=== PATIENT | female | born 1955 | race Hispanic/Latino ===

== ENCOUNTER 2018-09-05 06:03 | Observation (INO) | payer MEDICAID ==
[2018-09-01 14:45] VITALS: BP 133/64
[2018-09-01 15:17] LABS: BASOPHILS % (AUTO) 0.6 % (0.0-5.0); EOSINOPHILS % (AUTO) 0.9 % (0.0-8.0); HEMATOCRIT 35.5 % (42-54); LYMPHOCYTES % (AUTO) 16.1 % (21.0-51.0); MEAN CORPUSCULAR HEMOGLOBIN 29.1 pg (27.0-33.0); MEAN CORPUSCULAR HGB CONC 33.4 g/dL (32.0-36.0); MEAN CORPUSCULAR VOLUME 87.4 fL (79-99); MONOCYTES % (AUTO) 7.1 % (3.0-13.0); NEUTROPHILS % (AUTO) 75.3 % (40.0-77.0); PLATELET COUNT (AUTO) 234 K/uL (130-400); RED BLOOD CELL COUNT(AUTO) 4.07 MIL/uL (4.50-6.20); RED CELL DISTRIBUTION WIDTH 18.5 % (11.0-15.5); WHITE BLOOD COUNT (AUTO) 11.9 K/uL (4.8-10.8)
[2018-09-01 15:31] LABS: CREATININE 1.1 mg/dL (0.5-1.5); POTASSIUM 4.7 mmol/L (3.5-5.1)
[2018-09-01 15:33] LABS: INR 0.95 (0.85-1.15); PARTIAL THROMBOPLASTIN TIME 28.2 SEC (26.3-35.5)
--- NOTE | 2018-09-04 11:00 | NUR ---
ABNORMAL LABS REPORTED TO ADRIAN TUCKER WBC 11.9, H/H 11.9/35.5. NO FURTHER ORDERS GIVEN, MAY PROCEED WITH PLANNED PROCEDURE.
[2018-09-05] VITALS (22 sets, daily range): BP systolic 78–134; BP diastolic 42–91
[~2018-09-05] VITALS: Ht 144.8 cm; Wt 138.8 kg
[~2018-09-05 06:03] MED LIST: AEC81 PO; ALBUHFA IH; ATOR10TA69 PO; BUPR200T34 PO; CARV12.511 PO; DIGO250T84 PO; ESCI10TA54 PO; ESOM40CA PO; FURO40TA5 PO; LISI2.5T2 PO; LORA10TA7 PO; RIVA20TA PO; SPIR50TA5 PO; VITAD400 PO
[2018-09-05] MEDS ORDERED: SODIUM CHLORIDE 0.9% 1000ML 1,000 ML IV ONE (07:42)
[2018-09-05] MEDS ORDERED: CEFAZOLIN SODIUM 1 GM VIAL ONE ×3 (09:59→10:41)
[2018-09-05] MEDS ORDERED: LIDOCAINE HCL 1% MDV 50ML VIAL ONE (09:59)
[2018-09-05] MEDS ORDERED: BUPIVACAINE/PF 0.25% 30ML VIAL IJ ONE (09:59)
[2018-09-05] MEDS ORDERED: FENTANYL CITRATE PF 50 MCG/1 ML 2ML VIAL ONE (10:23)
[2018-09-05] MEDS ORDERED: MIDAZOLAM HCL 1 MG/ML 2ML VIAL ONE (10:23)
[2018-09-05] MEDS ORDERED: ONDANSETRON HCL 4 MG/2 ML VIAL ONE (10:23)
[2018-09-05] MEDS ORDERED: PROPOFOL 10 MG/ML 20ML VIAL IV ONE (10:23)
[2018-09-05] MEDS ORDERED: ROCURONIUM BROMIDE 10MG/1ML 5ML VL ONE (10:26)
[2018-09-05] MEDS ORDERED: EPHEDRINE SULFATE 50 MG/ML AMPULE ONE (10:44)
[2018-09-05] MEDS ORDERED: GLYCOPYRROLATE 0.2 MG/ML 5 ML VIAL ONE (10:52)
[2018-09-05] MEDS ORDERED: NEOSTIGMINE 5MG/5ML SYR IV ONE (11:44)
[2018-09-05] MEDS ORDERED: OCTYL 2-CYANOACRYLATE 1 EACH TP ONE (12:03)
[2018-09-05] MEDS ORDERED: PANTOPRAZOLE SODIUM 40 MG TABLET.DR PO PRN (12:15)
[2018-09-05] MEDS ORDERED: ACETAMINOPHEN-CODEINE 300/30MG TAB PO PRN (12:15)
[2018-09-05] MEDS ORDERED: ALBUTEROL SULFATE 0.083% 2.5 MG/3 ML INH IH PRN (12:15)
[2018-09-05] MEDS: METOPROLOL TARTRATE 50 MG TAB PO SCH ×2 (12:15→23:23)
[2018-09-05] MEDS ORDERED: ONDANSETRON HCL 4 MG/2 ML VIAL IV PRN (12:15)
[2018-09-05] MEDS: ACETAMINOPHEN-CODEINE 300/30MG TAB PO PRN ×2 (17:24→21:25)
[2018-09-05] MEDS: CEFAZOLIN SODIUM 1 GM VIAL IVP SCH (18:33)
--- NOTE | 2018-09-05 20:50 | NUR ---
NOTIFIED DR. ALMONTE ABOUT DECREASED BLOOD PRESSURE. INITIALLY 70'S/40'S. REPOSITIONED. 90'S/40'S. NO DISTRESS NOTED. ASYMPTOMATIC. DR. ALMONTE STATED 250ML NS BOLUS AND MONITOR DURING THE NIGHT. NO NEW ORDERS. PT AWARE.
[2018-09-05] MEDS: FUROSEMIDE 40 MG TABLET PO SCH (21:24)
[2018-09-06] MEDS ORDERED: ACETAMINOPHEN 325 MG TAB PO PRN ×2 (00:15)
[2018-09-06] MEDS ORDERED: NITROGLYCERIN 0.4 MG SL TAB SL PRN (00:15)
[2018-09-06] MEDS: CEFAZOLIN SODIUM 1 GM VIAL IVP SCH (03:30)
[2018-09-06 03:58] VITALS: BP 147/70
[2018-09-06 04:44] LABS: BASOPHILS % (AUTO) 0.6 % (0.0-5.0); HEMATOCRIT 33.4 % (36-48); LYMPHOCYTES % (AUTO) 18.7 % (21.0-51.0); MEAN CORPUSCULAR HEMOGLOBIN 28.4 pg (27.0-33.0); MEAN CORPUSCULAR HGB CONC 32.6 g/dL (32.0-36.0); MEAN CORPUSCULAR VOLUME 87.1 fL (79-99); NEUTROPHILS % (AUTO) 70.7 % (40.0-77.0); NUCLEATED RED BLOOD CELLS 0.1 % (0.0-0.19); PLATELET COUNT (AUTO) 207 K/uL (130-400); RED BLOOD CELL COUNT(AUTO) 3.84 MIL/uL (4.00-5.50); RED CELL DISTRIBUTION WIDTH 18.6 % (11.0-15.5); WHITE BLOOD COUNT (AUTO) 8.1 K/uL (4.8-10.8)
[2018-09-06 05:01] LABS: MAGNESIUM 1.9 mg/dL (1.80-2.40); POTASSIUM 4.3 mmol/L (3.5-5.1)
[2018-09-06 07:41] VITALS: BP 128/58
--- NOTE | 2018-09-06 07:50 | NUR ---
ASSESSMENT ENCOUNTERED PT SITTING ON SIDE OF BED, A&OX3, CALM COOPERATIVE AND DOES NOT APPEAR TO BE IN ANY DISTRESS NOR ANY NEURO DEFICITS PRESENT. PT DENIES PAIN, SOB, NAUSEA. LEFT SHOULDER DRESSING DRY, INTACT, AND SECURED WITH ARM SLING. PT IS AMBULATORY, GAIT SLOW BUT STEADY WITH STAND BY ASSIST. CALL LIGHT WITHIN REACH, FAMILY AT BEDSIDE.
[2018-09-06] MEDS ORDERED: BUPROPION HCL 300 MG PO SCH (09:00)
[2018-09-06] MEDS ORDERED: CITALOPRAM 20 MG TABLET PO SCH (09:00)
[2018-09-06] MEDS ORDERED: SPIRONOLACTONE 25 MG TAB PO SCH (09:00)
[2018-09-06] MEDS ORDERED: LORATADINE 10 MG TABLET PO SCH (09:00)
[2018-09-06] MEDS ORDERED: LISINOPRIL 2.5 MG TABLET PO SCH (09:00)
[2018-09-06] MEDS ORDERED: ASPIRIN 81 MG EC TAB PO SCH (09:00)
[2018-09-06] MEDS ORDERED: CHOLECALCIFEROL 500 UNIT PO SCH (09:00)
[2018-09-06] MEDS ORDERED: ATORVASTATIN CALCIUM 10 MG TABLET PO SCH (09:00)
[2018-09-06] MEDS: METOPROLOL TARTRATE 50 MG TAB PO SCH (09:19)
[2018-09-06] MEDS: FUROSEMIDE 40 MG TABLET PO SCH (09:24)
[2018-09-06] MEDS: ACETAMINOPHEN-CODEINE 300/30MG TAB PO PRN (09:30)
[2018-09-06] MEDS ORDERED: DOXY100T2 PO (11:19)
[2018-09-06] MEDS ORDERED: METO50TA9 PO (11:19)
[2018-09-06 11:50] VITALS: BP 105/56
--- NOTE | 2018-09-06 13:00 | NUR ---
DISCHARGE INSTRUCTIONS GIVEN, PIV REMOVED AND INTACT, DISCHARGED HOME TO FAMILY VEHICLE VIA WHEELCHAIR.
[2018-09-06] MEDS ORDERED: DIGOXIN 250 MCG TABLET PO SCH (16:00)
== END 2018-09-06 14:04 | disposition home or self-care (01) ==
LOC: DAH 06:03 → 2DH 06:04 → EDSEX 14:00
PROVIDERS: ADMIT Internal Medicine; ATTEND Internal Medicine
DX: I49.5 Sick sinus syndrome (principal); I48.2 Chronic atrial fibrillation; I11.9 Hypertensive heart disease without heart failure; I42.9 Cardiomyopathy, unspecified; G47.33 Obstructive sleep apnea (adult) (pediatric); E11.9 Type 2 diabetes mellitus without complications; F32.9 Major depressive disorder, single episode, unspecified; E66.01 Morbid (severe) obesity due to excess calories; Z91.19 Patient's noncompliance with other medical treatment and regimen; Z95.0 Presence of cardiac pacemaker; Z68.44 Body mass index [BMI] 60.0-69.9, adult
CPT/HCPCS: 33208; 36415 ×2; 71046; 80048 ×2; 83735; 85025 ×2; 85610; 85730; 93005 ×2; 94664; 96374; 96376; C1785; C1894; C1898 ×2; G0378 ×26; J0690 ×5; J2250; J2405; J2704; J2710; J3010; J3490 ×5; J7030

== ENCOUNTER 2023-08-08 08:03 | Day surgery (SDC) | payer MEDICARE ==
[2023-08-05 12:07] LABS: BASOPHILS # (AUTO) 0.05 K/uL (0.00-0.20); BASOPHILS % (AUTO) 0.4 % (0.0-5.0); EOSINOPHILS # (AUTO) 0.08 K/uL (0.00-0.70); EOSINOPHILS % (AUTO) 0.7 % (0.0-8.0); IMMATURE GRANULOCYTE ABSOLUTE 0.12 K/uL (0-1); LYMPHOCYTES # (AUTO) 1.5 K/uL (1.0-4.8); LYMPHOCYTES % (AUTO) 13.3 % (21.0-51.0); MEAN CORPUSCULAR HEMOGLOBIN 26.9 pg (27.0-33.0); MEAN CORPUSCULAR HGB CONC 30.7 g/dL (32.0-36.0); MEAN CORPUSCULAR VOLUME 87.4 fL (79-99); MONOCYTES # (AUTO) 0.7 K/uL (0.1-1.0); NEUTROPHILS % (AUTO) 78.5 % (40.0-77.0); PLATELET COUNT (AUTO) 250 K/uL (130-400); RED BLOOD CELL COUNT(AUTO) 4.69 MIL/uL (4.00-5.50); RED CELL DISTRIBUTION WIDTH 16.5 % (11.0-15.5); WHITE BLOOD COUNT (AUTO) 11.4 K/uL (4.8-10.8)
[2023-08-05 12:19] VITALS: BP 93/60; PULSE 80; RESP 19
[2023-08-05 12:33] LABS: CREATININE 1.2 mg/dL (0.5-1.0); POTASSIUM 4.2 mmol/L (3.5-5.1)
[~2023-08-08] VITALS: Ht 149.9 cm; Wt 146.0 kg
[2023-08-08] VITALS (10 sets, daily range): BP systolic 99–120; BP diastolic 44–57; PULSE 70–80; RESP 14–19
[~2023-08-08 08:03] MED LIST changes: -AEC81 PO; -ALBUHFA IH; +BUPR-49 PO; -BUPR200T34 PO; -CARV12.511 PO; +DIGO250T73 PO; -DIGO250T84 PO; +DRON400T7 PO; +ESCI-8 PO; -ESCI10TA54 PO; -ESOM40CA PO; +LISI2.5T13 PO; -LISI2.5T2 PO; +METO-409 PO; +TRAZ-185 PO; -VITAD400 PO
[2023-08-08 08:41] LABS: BASOPHILS # (AUTO) 0.05 K/uL (0.00-0.20); BASOPHILS % (AUTO) 0.5 % (0.0-5.0); EOSINOPHILS # (AUTO) 0.08 K/uL (0.00-0.70); EOSINOPHILS % (AUTO) 0.7 % (0.0-8.0); HEMATOCRIT 38.2 % (36-48); IMMATURE GRANULOCYTE ABSOLUTE 0.14 K/uL (0-1); MEAN CORPUSCULAR HEMOGLOBIN 26.8 pg (27.0-33.0); MEAN CORPUSCULAR HGB CONC 30.6 g/dL (32.0-36.0); MEAN CORPUSCULAR VOLUME 87.6 fL (79-99); MONOCYTES # (AUTO) 0.8 K/uL (0.1-1.0); NEUTROPHILS # (AUTO) 7.9 K/uL (1.8-7.7); NEUTROPHILS % (AUTO) 72.5 % (40.0-77.0); PLATELET COUNT (AUTO) 255 K/uL (130-400); RED BLOOD CELL COUNT(AUTO) 4.36 MIL/uL (4.00-5.50); RED CELL DISTRIBUTION WIDTH 16.2 % (11.0-15.5); WHITE BLOOD COUNT (AUTO) 10.9 K/uL (4.8-10.8)
[2023-08-08] MEDS: 0.9%NACL 1000ML 1,000 ML IV ONE (09:22)
[2023-08-08] MEDS ORDERED: PROPOFOL 10 MG/ML 20ML VIAL IV ONE (10:13)
[2023-08-08] MEDS ORDERED: SUCCINYLCHOLINE CHLORIDE 20 MG/ML 10 ML VIAL ONE (10:13)
== END 2023-08-08 11:35 | disposition home or self-care (01) ==
LOC: DAH 08:03
PROVIDERS: ATTEND Internal Medicine Cardiovascular Disease
DX: I48.19 Other persistent atrial fibrillation (principal); E66.01 Morbid (severe) obesity due to excess calories; I42.8 Other cardiomyopathies; I49.5 Sick sinus syndrome; I44.7 Left bundle-branch block, unspecified; J44.9 Chronic obstructive pulmonary disease, unspecified; I11.0 Hypertensive heart disease with heart failure; I50.9 Heart failure, unspecified; F41.9 Anxiety disorder, unspecified; G47.33 Obstructive sleep apnea (adult) (pediatric); F32.A Depression, unspecified; Z79.899 Other long term (current) drug therapy; Z98.890 Other specified postprocedural states; Z90.49 Acquired absence of other specified parts of digestive tract; Z68.44 Body mass index [BMI] 60.0-69.9, adult
CPT/HCPCS: 80048; 85025 ×2; 36415 ×2; 92960; 93005 ×2; J0330; J7030; J2704; A4620; A4215; A4213; A4222; A4221; A4663; A4216; A4606; A4223 ×3; J3490

== ENCOUNTER 2023-12-14 06:31 | Observation (INO) | payer MEDICARE ==
[2023-12-12 12:07] LABS: BASOPHILS # (AUTO) 0.07 K/uL (0.00-0.20); BASOPHILS % (AUTO) 0.6 % (0.0-5.0); EOSINOPHILS # (AUTO) 0.08 K/uL (0.00-0.70); EOSINOPHILS % (AUTO) 0.7 % (0.0-8.0); HEMATOCRIT 38.9 % (36-48); IMMATURE GRANULOCYTE ABSOLUTE 0.22 K/uL (0-1); LYMPHOCYTES # (AUTO) 1.9 K/uL (1.0-4.8); MEAN CORPUSCULAR HEMOGLOBIN 27.9 pg (27.0-33.0); MEAN CORPUSCULAR HGB CONC 31.1 g/dL (32.0-36.0); MEAN CORPUSCULAR VOLUME 89.6 fL (79-99); MONOCYTES # (AUTO) 0.6 K/uL (0.1-1.0); MONOCYTES % (AUTO) 5.4 % (3.0-13.0); NEUTROPHILS # (AUTO) 8.3 K/uL (1.8-7.7); NEUTROPHILS % (AUTO) 74.3 % (40.0-77.0); PLATELET COUNT (AUTO) 280 K/uL (130-400); RED BLOOD CELL COUNT(AUTO) 4.34 MIL/uL (4.00-5.50); RED CELL DISTRIBUTION WIDTH 16.8 % (11.0-15.5); WHITE BLOOD COUNT (AUTO) 11.2 K/uL (4.8-10.8)
[2023-12-12 12:15] VITALS: BP 108/56; PULSE 90; RESP 18; TEMP 97.4
[2023-12-12 12:26] LABS: INR 1.02 (0.85-1.15)
[2023-12-12 12:27] LABS: PARTIAL THROMBOPLASTIN TIME 26.2 SEC (26.3-35.5)
[2023-12-12 12:35] LABS: CREATININE 1.3 mg/dL (0.5-1.0); POTASSIUM 3.7 mmol/L (3.5-5.1)
[2023-12-14] VITALS (42 sets, daily range): BP systolic 83–147; BP diastolic 45–81; PULSE 48–85; RESP 4–54; TEMP 97.4–98.2; O2SAT 94–99
[~2023-12-14] VITALS: Ht 144.8 cm; Wt 138.3 kg
[~2023-12-14 06:31] MED LIST changes: -DRON400T7 PO; -TRAZ-185 PO; +ceFAZolin SODIUM 2 GM VIAL IVPB PRN
[2023-12-14 06:51] LABS: BASOPHILS # (AUTO) 0.06 K/uL (0.00-0.20); BASOPHILS % (AUTO) 0.6 % (0.0-5.0); EOSINOPHILS # (AUTO) 0.11 K/uL (0.00-0.70); EOSINOPHILS % (AUTO) 1.1 % (0.0-8.0); HEMATOCRIT 38.9 % (36-48); IMMATURE GRANULOCYTE ABSOLUTE 0.19 K/uL (0-1); LYMPHOCYTES # (AUTO) 2.4 K/uL (1.0-4.8); LYMPHOCYTES % (AUTO) 24.8 % (21.0-51.0); MEAN CORPUSCULAR HEMOGLOBIN 28.3 pg (27.0-33.0); MEAN CORPUSCULAR HGB CONC 31.1 g/dL (32.0-36.0); MEAN CORPUSCULAR VOLUME 90.9 fL (79-99); MONOCYTES # (AUTO) 0.6 K/uL (0.1-1.0); MONOCYTES % (AUTO) 6.5 % (3.0-13.0); NEUTROPHILS # (AUTO) 6.4 K/uL (1.8-7.7); NEUTROPHILS % (AUTO) 65.1 % (40.0-77.0); PLATELET COUNT (AUTO) 256 K/uL (130-400); RED BLOOD CELL COUNT(AUTO) 4.28 MIL/uL (4.00-5.50); RED CELL DISTRIBUTION WIDTH 16.9 % (11.0-15.5); WHITE BLOOD COUNT (AUTO) 9.8 K/uL (4.8-10.8)
[2023-12-14] MEDS: 0.9%NACL 1000ML 1,000 ML IV ONE (09:34)
[2023-12-14] MEDS ORDERED: FENTanyl CITRate PF 50 MCG/1 ML 2ML VIAL ONE ×3 (11:04→16:12)
[2023-12-14] MEDS ORDERED: proPOFol 10 MG/ML 20ML VIAL IV ONE (11:04)
[2023-12-14] MEDS ORDERED: MIDAZOLAM HCL 1 MG/ML 2ML VIAL ONE (11:04)
[2023-12-14] MEDS ORDERED: SUCCINYLCHOLINE CHLORIDE 20 MG/ML 10 ML VIAL ONE (11:05)
[2023-12-14] MEDS ORDERED: IOHEXOL-350 50ML VIAL IV ONE ×2 (11:07→12:57)
[2023-12-14] MEDS ORDERED: ceFAZolin SODIUM 1 GM VIAL ONE (11:07)
[2023-12-14] MEDS ORDERED: LIDOCAINE HCL 1% MDV 50ML VIAL ONE (11:07)
[2023-12-14] MEDS ORDERED: BUPIvacaine/PF 0.25% 30ML VIAL IJ ONE (11:07)
[2023-12-14] MEDS ORDERED: ATROPINE 1MG SYG IVP ONE (11:24)
[2023-12-14] MEDS ORDERED: rocuRONium bROMide 10MG/1ML 5ML VL ONE (11:33)
[2023-12-14] MEDS ORDERED: phenylEPHRINE HCL 10 MG/ML 1ML VIAL IV ONE ×2 (11:34→14:50)
[2023-12-14] MEDS ORDERED: VASOpressin 20 UNITS/ML 1ML VIAL ONE (11:38)
[2023-12-14] MEDS ORDERED: BACITRACIN 1 EACH PACKET TP ONE (15:48)
[2023-12-14] MEDS ORDERED: GLYCOPYRROLATE 0.2 MG/ML 5 ML VIAL ONE (16:12)
[2023-12-14] MEDS ORDERED: NEOSTIGMINE METHYLSULFATE 1MG/ML IV ONE (16:14)
[2023-12-14] MEDS ORDERED: TRAM50TA4 PO (16:24)
[2023-12-14] MEDS: 0.9% NACL 250ML 250 ML IV SCH (18:12)
[2023-12-14] MEDS: acetaMINOPHEN WITH coDEINE 1 TAB TAB PO PRN (23:05)
[2023-12-15] VITALS (29 sets, daily range): BP systolic 83–126; BP diastolic 34–64; PULSE 56–108; RESP 14–46; TEMP 98.5–99.1; O2SAT 96
[2023-12-15 04:57] LABS: CREATININE 1.1 mg/dL (0.5-1.0); POTASSIUM 4.7 mmol/L (3.5-5.1)
[2023-12-15] MEDS: acetaMINOPHEN 500 MG TABLET PO PRN (14:32)
== END 2023-12-15 15:07 | disposition home or self-care (01) ==
LOC: DAH 06:31 → DAHIP 06:32 → DAH 06:32 → 2BH 17:43
PROVIDERS: ADMIT Internal Medicine Cardiovascular Disease; ATTEND Internal Medicine Cardiovascular Disease
DX: I42.0 Dilated cardiomyopathy (principal); I48.20 Chronic atrial fibrillation, unspecified; I11.0 Hypertensive heart disease with heart failure; I50.42 Chronic combined systolic (congestive) and diastolic (congestive) heart failure; I42.8 Other cardiomyopathies; I48.21 Permanent atrial fibrillation; G47.33 Obstructive sleep apnea (adult) (pediatric); F32.A Depression, unspecified; E66.01 Morbid (severe) obesity due to excess calories; E11.9 Type 2 diabetes mellitus without complications; Z68.44 Body mass index [BMI] 60.0-69.9, adult; Z90.49 Acquired absence of other specified parts of digestive tract; Z79.899 Other long term (current) drug therapy
CPT/HCPCS: 80048 ×2; 85025 ×2; 85610; 85730; 36415 ×3; 93005 ×2; 33233; 33249; 82948; 71045; 93306; 93356; C1769; C1895 ×2; C1882; G0378 ×22; J3010 ×3; J0690; J0330; J7030; J0665; J3490 ×3; J0461; J2250; J2704; J2710; J2371 ×2; Q9967 ×2; A4215; A4223 ×3; A4554; A4335; A4222; A4221; A4663; A4216; A4606; A4344; 33225; C1721; C1896

== ENCOUNTER 2024-02-08 07:17 | Inpatient (IN) | payer MEDICARE ==
[2024-02-08] VITALS (20 sets, daily range): BP systolic 98–162; BP diastolic 51–81; PULSE 72–96; RESP 15–20; TEMP 97.1–99.4; O2SAT 92–100
[~2024-02-08 07:17] MED LIST changes: +TRAM50TA4 PO; -ceFAZolin SODIUM 2 GM VIAL IVPB PRN
--- NOTE | 2024-02-08 11:22 | HP ---
[facility] HISTORY AND PHYSICAL Date of Service: Feb 08, 2024 Time of Service: 11:22 HISTORY OF PRESENT ILLNESS: Date of service: 02/08/2024 This 68-year-old female with past medical history of atrial fibrillation, hypertension, hyperlipidemia, obstructive sleep apnea on CPAP, depression, anemia obesity presented as a transfer from [facility] hospital. Patient initially presented to [facility] for suspected a ICD malfunction. Patient experienced multiple shocks from her AICD around 4-5 days ago. Patient was transferred to [facility] since Dr Lipscomb unavailable. She was admitted in [facility] around February 03 and monitored by Cardiology. She was evaluated by Cardiology by . Per chart review cardiology felt her device shocks were due to inappropriate detection of the ventricular fibrillation due to defibrillator lead sensing atrial fibrillation. She was recommended to hold her Xarelto for the meantime. She was recommended to be transferred to [facility] once Dr. Lipscomb was available. Patient currently denies any chest pain, cough, shortness of breath, abdominal pain, nausea, vomiting. She denied any palpitations. Her defibrillator shocks were turned off while in [facility]. She denied any falls, syncopal episode. Chest x-ray from [facility] was concerning for possible right lower lobe infiltrate versus congestion. REVIEW OF SYSTEMS CONSTITUTIONAL: Denies fevers, chills, or night sweats. No unintentional weight loss reported. NEUROLOGICAL: Denies headache, amaurosis fugax, motor weakness, sensory deficit, vertigo/spinning sensation, gait abnormalities, or tremors. ENT: No hearing loss, otalgia, otorrhea, rhinitis, rhinorrhea, hoarseness, or sore throat. CARDIOVASCULAR: Denies any exertional angina, dyspnea on exertion, orthopnea, paroxysmal nocturnal dyspnea, palpitations, life-threatening arrhythmias, claudication. PULMONARY: Denies any shortness of breath, cough, phlegm/sputum, hemoptysis, pleuritic chest pain. SLEEP: Denies morning headaches, daytime somnolence or napping. Denies difficulty falling asleep, staying asleep, waking from sleep. Denies knowledge of snoring. GASTROINTESTINAL: Denies any type of dysphagia to either liquids or solids. Denies nausea, vomiting, pyrosis, early satiety, abdominal pain, diarrhea, constipation, or changes in stool consistency or caliber. Denies coffee-ground emesis, hematemesis, hematochezia, or melanotic stools. GENITOURINARY: Denies frequency, urgency, nocturia, hematuria or incontinence (Storage/Irritative symptoms.) Low urinary stream, straining to void, urinary intermittency or hesitancy, splitting of the voiding stream, terminal dribbling. ENDOCRINOLOGIC: Denies polyuria, polydipsia, polyphagia or heat/cold intolerances. HEMATOLOGIC: Denies thrombophilia/previous clots, or coagulopathy/bleeding disorders. ONCOLOGIC: Denies personal history of malignancy. DERMATOLOGIC: Denies rashes or pruritus. PSYCHIATRIC: Denies any suicidal or homicidal ideation. Denies hallucinations. PAST MEDICAL HISTORY: Hypertension, atrial fibrillation, hyperlipidemia, obstructive sleep apnea on CPAP depression, anemia PAST SURGICAL HISTORY: History of Biv AICD placement PAST SOCIAL HISTORY: Denied smoking, alcohol, drug use FAMILY HISTORY: Denied any pertinent family history Coded Allergies: No Known Drug Allergies (Verified Allergy, Unknown, 02/08/24) PHYSICAL EXAM GENERAL APPEARANCE: The patient is awake, alert, and oriented, in no acute cardiopulmonary distress. NEUROLOGICAL: Cranial nerves II-XII grossly intact. Motor is 5/5 in bilateral upper and lower extremities proximal to distal. No sensory deficits. HEENT: Face is symmetric. Pupils are equal and reactive. Extraocular movements are intact. NECK: Supple. No JVD. No thyromegaly. No submental, submandibular, pre-/postauricular, occipital or supraclavicular lymphadenopathy. CHEST: Normal chest expansion. No Telemetry. LUNGS: Absence of any rales, rhonchi or any wheezing. CARDIOVASCULAR: Regular. S1 and S2 normal. No appreciable rubs, murmurs or gallops. ABDOMEN: Soft, nontender, and nondistended. There is no rebound, voluntary guarding, or rigidity. : Deferred. No Batres. EXTREMITIES: Non-edematous and not cyanotic. No clubbing. Good capillary refill. SKIN: No skin breakdown. Vital Sign (Last 24 Hours) 02/08/24 10:40 Temp 98.4 Pulse 72 Resp 20 B/P (MAP) 142/52 Pulse Ox 92 O2 Delivery Room Air LABS: Current Medications Medications (Trade) Dose Ordered Sig/Liz Route PRN Reason Start Time Stop Time Status Last Admin Dose Admin Famotidine (Pepcid 20mg Vial) 20 mg Q24H IV 02/08/24 21:00 03/09/24 20:59 Magnesium Sulfate 50 ml @ 0 mls/hr PROTOCOL PRN IV hypomagnesemia 02/08/24 11:30 03/09/24 11:29 Potassium Chloride 100 ml @ 100 mls/hr AD PRN IV POTASSIUM PROTOCOL 02/08/24 11:30 03/09/24 11:29 Potassium Chloride (K-Dur/Klor-Con 20meq) 20 meq AD PRN PO POTASSIUM PROTOCOL 02/08/24 11:30 03/09/24 11:29 Potassium Chloride (KCl 10% Elixir 20meq/15ml) 20 meq AD PRN PO POTASSIUM PROTOCOL 02/08/24 11:30 03/09/24 11:29 DIAGNOSTICS / RADIOLOGY: [ ] ASSESSMENT: AICD malfunction POA History of CHF S/P BiV ICD History of atrial fibrillation on chronic anticoagulation with Xarelto History of ADELIA on CPAP Hypertension Hyperlipidemia Depression Anemia Obesity PLAN: - patient to be admitted to [facility] -in reference to AICD malfunction. We will request consultation with Dr. Lipscomb For further evaluation. Keep potassium greater than four, magnesium greater than two. Pt will be NPO for now. Will obatin pre op labs. -obtain a chest x-ray -obtain home medications which will be reconciled once available -further orders per hospitalization course. Advanced Care Planning Which of the following were discussed: Hospice care: Yes __ No _x_ Therapeutic options: Yes __ No __ Advance directives: Yes __ No __ Other discussions: Pt is full code Discussed with who?: patient (Patient, family or surrogates) Voluntary nature of this service was explained to the patient? Yes _x_ No __ Amount of time spent: 25 minutes OUMAR Carty MD, MD Feb 08, 2024 11:22
[2024-02-08] MEDS ORDERED: PoTASSium chl 10% ELIXIR 20MEQ 20 MEQ/15 ML UDCUP PO PRN (11:30)
[2024-02-08] MEDS ORDERED: PoTASSium chloRIDE 20MEQ/100ML 100 ML IV PRN (11:30)
[2024-02-08] MEDS ORDERED: MAGNESIUM 2GM PREMIX 50ML 50 ML IV PRN (11:30)
[2024-02-08 11:48] LABS: BASOPHILS # (AUTO) 0.05 K/uL (0.00-0.20); BASOPHILS % (AUTO) 0.6 % (0.0-5.0); EOSINOPHILS # (AUTO) 0.07 K/uL (0.00-0.70); EOSINOPHILS % (AUTO) 0.8 % (0.0-8.0); HEMATOCRIT 36.4 % (36-48); IMMATURE GRANULOCYTE ABSOLUTE 0.15 K/uL (0-1); LYMPHOCYTES # (AUTO) 1.5 K/uL (1.0-4.8); LYMPHOCYTES % (AUTO) 16.8 % (21.0-51.0); MEAN CORPUSCULAR HEMOGLOBIN 28.3 pg (27.0-33.0); MEAN CORPUSCULAR HGB CONC 30.8 g/dL (32.0-36.0); MEAN CORPUSCULAR VOLUME 91.9 fL (79-99); MONOCYTES # (AUTO) 0.6 K/uL (0.1-1.0); MONOCYTES % (AUTO) 7.2 % (3.0-13.0); NEUTROPHILS # (AUTO) 6.3 K/uL (1.8-7.7); NEUTROPHILS % (AUTO) 72.9 % (40.0-77.0); PLATELET COUNT (AUTO) 229 K/uL (130-400); RED BLOOD CELL COUNT(AUTO) 3.96 MIL/uL (4.00-5.50); RED CELL DISTRIBUTION WIDTH 16.7 % (11.0-15.5); WHITE BLOOD COUNT (AUTO) 8.6 K/uL (4.8-10.8)
[2024-02-08 11:56] LABS: HEMOGLOBIN A1C 5.6 % (4.0-6.0)
[2024-02-08 11:58] LABS: INR 1.06 (0.85-1.15); PROTHROMBIN TIME 11.4 SEC (9.6-11.6)
[2024-02-08 11:59] LABS: PARTIAL THROMBOPLASTIN TIME 27.8 SEC (26.3-35.5)
[2024-02-08 12:10] LABS: ALBUMIN 2.7 g/dL (3.5-5.0); BILIRUBIN,TOTAL 0.8 mg/dL (0.2-1.0); CREATININE 0.9 mg/dL (0.5-1.0); MAGNESIUM 1.8 mg/dL (1.80-2.40); THYROID STIMULATING HORMONE 1.7 uIU/mL (0.36-3.74)
[2024-02-08] MEDS ORDERED: LIDOCAINE HCL 1% MDV 50ML VIAL ONE (13:46)
[2024-02-08] MEDS ORDERED: IOHEXOL-350 50ML VIAL IV ONE (13:47)
[2024-02-08] MEDS ORDERED: BUPIvacaine/PF 0.25% 30ML VIAL IJ ONE (13:47)
[2024-02-08] MEDS ORDERED: VANCOMYCIN 1G/250ML KIT 500 ML IV ONE (13:47)
[2024-02-08] MEDS ORDERED: GLYCOPYRROLATE 0.2 MG/ML 5 ML VIAL ONE (13:58)
[2024-02-08] MEDS ORDERED: ondanSETRON 4MG INJ ONE ×2 (13:58→17:38)
[2024-02-08] MEDS ORDERED: LIDOCAINE PF 100MG/5ML (2%) SYRINGE 5ML ONE (13:58)
[2024-02-08] MEDS ORDERED: SUCCINYLCHOLINE CHLORIDE 20 MG/ML 10 ML VIAL ONE (13:58)
[2024-02-08] MEDS ORDERED: NEOSTIGMINE METHYLSULFATE 1MG/ML IV ONE (13:58)
[2024-02-08] MEDS ORDERED: rocuRONium bROMide 10MG/1ML 5ML VL ONE (13:58)
[2024-02-08] MEDS ORDERED: dexaMETHasone SOD PHOSPHATE 10MG/ML 1ML VIAL ONE (13:58)
[2024-02-08] MEDS ORDERED: proPOFol 10 MG/ML 20ML VIAL IV ONE (13:59)
[2024-02-08] MEDS ORDERED: FENTanyl CITRate PF 50 MCG/1 ML 2ML VIAL ONE ×2 (13:59→17:38)
[2024-02-08] MEDS ORDERED: SUGAMMADEX SODIUM 200 MG/2 ML VIAL IV ONE (14:03)
[2024-02-08] MEDS ORDERED: ketaMINE 50MG/ML SYRINGE 50 MG/ML DISP.SYRIN ONE (14:04)
[2024-02-08] MEDS ORDERED: MIDAZOLAM HCL 1 MG/ML 2ML VIAL ONE (14:10)
--- NOTE | 2024-02-08 14:25 | HMCIMG ---
CHEST 1VW HISTORY: AICD COMPARISON: 12/15/2023 FINDINGS: A frontal projection of the chest was obtained. The study is limited due to patient's large body habitus. Prominent interstitial markings are seen with superimposed infiltrates not excluded. Pacemaker is seen entering from the left. The heart is enlarged. No evidence of aortic calcification is seen. IMPRESSION: 1. Limited study due to patient's large body habitus.
--- NOTE | 2024-02-08 14:34 | CONS ---
[facility] CARDIAC ELECTROPHYSIOLOGY CONSULTATION Date Patient Seen: Feb 08, 2024 Time of Visit: 14:24 Requesting Physician: [ ] Reason for Consultation: ICD lead malfunction History of Present Illness: The patient is a 68-year-old woman with a history of hypertension, hyperlipidemia, morbid obesity, obstructive sleep apnea, and nonischemic cardiomyopathy who is status post upgrade of her dual-chamber pacemaker system to a cardiac resynchronization therapy defibrillator. At that time, no suitable coronary vein access could be assess so she instead underwent implantation of a conduction system pacing lead in the left bundle-branch area for resynchronization. This occurred on 12/14/2023. She had one in office wound check with device check which was unremarkable. She has not been seen in the office since that time. She then presented to [facility] with an inappropriate shock from her ICD. Her device was interrogated and there was what appeared to be mechanical nine on the lead however chest x-ray revealed the lead to have dislodged and was sensing atrial signals. She was in atrial fibrillation at the time. The plan was to transfer her to [facility] in order to perform a lead revision and the device was deactivated in the meanwhile to avoid future inappropriate shocks. Instead, she was transferred to [facility]. She was further evaluated there and the locker room manager there contacted me over the weekend. The family was insistent that I perform the procedure, therefore she was then transferred to [facility]. Interestingly, her ejection fraction post procedure was 45-50%. This was an improvement from previously, likely related to cardiac resynchronization therapy along with medications. Past Medical History: As above Family History: Noncontributory Social History: Denies smoking or alcohol abuse. Current Meds: See list Review of Systems: Negative on a 13 point review Physical Examination: GENERAL: Morbidly obese, BMI 66, in no apparent distress. HEENT: Grossly within normal limits NECK: No JVD LUNGS: Decreased breath sounds, clear HEART: Irregular with no murmurs EXT: No edema Vital Signs (last 8hr) Date Time Temp Pulse Resp B/P (MAP) Pulse Ox O2 Delivery O2 Flow Rate FiO2 02/08/24 10:40 98.4 72 20 142/52 92 Room Air Laboratory: [ ] Hematology Labs: Test 02/08/24 11:30 Range/Units White Blood Count 8.6 4.8-10.8 K/uL Red Blood Count 3.96 L 4.00-5.50 MIL/uL Hemoglobin 11.2 L 12.0-16.0 g/dL Hematocrit 36.4 36-48 % Mean Corpuscular Volume 91.9 79-99 fL Mean Corpuscular Hemoglobin 28.3 27.0-33.0 pg Mean Corpuscular Hemoglobin Concent 30.8 L 32.0-36.0 g/dL Red Cell Distribution Width 16.7 H 11.0-15.5 % Platelet Count 229 130-400 K/uL Mean Platelet Volume 9.0 7.5-10.5 fL Immature Granulocyte % (Auto) 1.7 H 0-1 % Neutrophils (%) (Auto) 72.9 40.0-77.0 % Lymphocytes (%) (Auto) 16.8 L 21.0-51.0 % Monocytes (%) (Auto) 7.2 3.0-13.0 % Eosinophils (%) (Auto) 0.8 0.0-8.0 % Basophils (%) (Auto) 0.6 0.0-5.0 % Neutrophils # (Auto) 6.3 1.8-7.7 K/uL Lymphocytes # (Auto) 1.5 1.0-4.8 K/uL Monocytes # (Auto) 0.6 0.1-1.0 K/uL Eosinophils # (Auto) 0.07 0.00-0.70 K/uL Basophils # (Auto) 0.05 0.00-0.20 K/uL Absolute Immature Granulocyte (auto 0.15 0-1 K/uL Nucleated Red Blood Cells 0.0 0.0-0.19 % Red Blood Cell Morphology See comments Chemistry Labs: Test 02/08/24 11:30 Range/Units Sodium Level 139 136-145 mmol/L Potassium Level 4.0 3.5-5.1 mmol/L Chloride Level 102 101-111 mmol/L Carbon Dioxide Level 32 21-32 mmol/L Blood Urea Nitrogen 12 7-18 mg/dL Creatinine 0.9 0.5-1.0 mg/dL Glomerular Filtration Rate Calc 70 >90 mL/min Random Glucose 86 70-105 mg/dL Hemoglobin A1c 5.6 4.0-6.0 % Estimated Average Glucose (eAG) 114 70-126 mg/dL Total Calcium 9.0 8.5-10.1 mg/dL Magnesium Level 1.80 1.80-2.40 mg/dL Total Bilirubin 0.8 0.2-1.0 mg/dL Aspartate Amino Transf (AST/SGOT) 25 10-37 U/L Alanine Aminotransferase (ALT/SGPT) 26 12-78 U/L Alkaline Phosphatase 103 50-136 U/L Troponin I High Sensitivity 9 4-50 ng/L Total Protein 7.0 6.0-8.3 g/dL Albumin 2.7 L 3.5-5.0 g/dL Procalcitonin < 0.05 L 0.05-0.5 ng/mL Thyroid Stimulating Hormone (TSH) 1.70 0.36-3.74 uIU/mL Coagulation Labs: Test 02/08/24 11:30 Range/Units Prothrombin Time 11.4 9.6-11.6 SEC Prothromb Time International Ratio 1.06 0.85-1.15 Activated Partial Thromboplast Time 27.8 26.3-35.5 SEC Assessment: 1. ICD lead dislodgement 2. Nonischemic cardiomyopathy, improved 3. Sick sinus syndrome 4. Atrial fibrillation of unknown duration Plan: 1. The patient will undergo revision of her RV pacing lead. This will be done under general anesthesia due to her morbid obesity and sleep apnea. YUVAL DEXTER MD Feb 08, 2024 14:34
[2024-02-08] MEDS ORDERED: BACITRACIN 1 EACH PACKET TP ONE (17:17)
[2024-02-08] MEDS ORDERED: acetaMINOPHEN WITH coDEINE 1 TAB TAB PO PRN ×2 (18:00→18:30)
[2024-02-08] MEDS ORDERED: traMADol HCL 50 MG TABLET PO PRN (18:00)
[2024-02-08] MEDS ORDERED: acetaMINOPHEN 500 MG TABLET PO PRN (18:00)
[2024-02-08] MEDS: Escitalopram Oxalate 20 MG PO SCH (21:00)
[2024-02-08] MEDS: atorVAStatin 10 MG TABLET PO SCH (21:14)
[2024-02-08] MEDS: FAMOTIDINE 20MG VIAL IV SCH (21:14)
[2024-02-08] MEDS: LISINOPRIL 2.5 MG TABLET PO SCH (21:14)
[2024-02-08] MEDS: furoSEMIDE 40 MG TABLET PO SCH (21:14)
[2024-02-08] MEDS: acetaMINOPHEN WITH coDEINE 1 TAB TAB PO PRN (21:16)
[2024-02-09] VITALS (7 sets, daily range): BP systolic 101–132; BP diastolic 67–70; PULSE 69–87; RESP 18–20; TEMP 98.3–98.9; O2SAT 95–98
[2024-02-09] MEDS: ARTIFICAL TEARS SOL 15 ML OD PRN (00:22)
[2024-02-09 04:31] LABS: BASOPHILS # (AUTO) 0.05 K/uL (0.00-0.20); BASOPHILS % (AUTO) 0.5 % (0.0-5.0); EOSINOPHILS # (AUTO) 0.07 K/uL (0.00-0.70); EOSINOPHILS % (AUTO) 0.7 % (0.0-8.0); HEMATOCRIT 33.9 % (36-48); IMMATURE GRANULOCYTE ABSOLUTE 0.17 K/uL (0-1); LYMPHOCYTES # (AUTO) 1.4 K/uL (1.0-4.8); LYMPHOCYTES % (AUTO) 13.6 % (21.0-51.0); MEAN CORPUSCULAR HEMOGLOBIN 28.2 pg (27.0-33.0); MEAN CORPUSCULAR HGB CONC 30.7 g/dL (32.0-36.0); MEAN CORPUSCULAR VOLUME 91.9 fL (79-99); MONOCYTES # (AUTO) 0.9 K/uL (0.1-1.0); MONOCYTES % (AUTO) 8.3 % (3.0-13.0); NEUTROPHILS # (AUTO) 7.9 K/uL (1.8-7.7); NEUTROPHILS % (AUTO) 75.3 % (40.0-77.0); PLATELET COUNT (AUTO) 229 K/uL (130-400); RED BLOOD CELL COUNT(AUTO) 3.69 MIL/uL (4.00-5.50); RED CELL DISTRIBUTION WIDTH 16.9 % (11.0-15.5); WHITE BLOOD COUNT (AUTO) 10.6 K/uL (4.8-10.8)
[2024-02-09 04:49] LABS: POTASSIUM 3.7 mmol/L (3.5-5.1)
[2024-02-09] MEDS: PoTASSium chloRIDE 20MEQ ER 20 MEQ ERTAB PO PRN (04:53)
--- NOTE | 2024-02-09 08:32 | PN ---
[facility] PROGRESS NOTE Date of Service: Feb 09, 2024 Time of Service: 08:32 SUBJECTIVE: [ ] REVIEW OF SYSTEMS CONSTITUTIONAL: Denies fevers, chills, or night sweats. No unintentional weight loss reported. NEUROLOGICAL: Denies headache, amaurosis fugax, motor weakness, sensory deficit, vertigo/spinning sensation, gait abnormalities, or tremors. ENT: No hearing loss, otalgia, otorrhea, rhinitis, rhinorrhea, hoarseness, or sore throat. CARDIOVASCULAR: Denies any exertional angina, dyspnea on exertion, orthopnea, paroxysmal nocturnal dyspnea, palpitations, life-threatening arrhythmias, claudication. PULMONARY: Denies any shortness of breath, cough, phlegm/sputum, hemoptysis, pleuritic chest pain. SLEEP: Denies morning headaches, daytime somnolence or napping. Denies difficulty falling asleep, staying asleep, waking from sleep. Denies knowledge of snoring. GASTROINTESTINAL: Denies any type of dysphagia to either liquids or solids. Denies nausea, vomiting, pyrosis, early satiety, abdominal pain, diarrhea, constipation, or changes in stool consistency or caliber. Denies coffee-ground emesis, hematemesis, hematochezia, or melanotic stools. GENITOURINARY: Denies frequency, urgency, nocturia, hematuria or incontinence (Storage/Irritative symptoms.) Low urinary stream, straining to void, urinary i ntermittency or hesitancy, splitting of the voiding stream, terminal dribbling. ENDOCRINOLOGIC: Denies polyuria, polydipsia, polyphagia or heat/cold intolerances. HEMATOLOGIC: Denies thrombophilia/previous clots, or coagulopathy/bleeding disorders. ONCOLOGIC: Denies personal history of malignancy. DERMATOLOGIC: Denies rashes or pruritus. PSYCHIATRIC: Denies any suicidal or homicidal ideation. Denies hallucinations. PHYSICAL EXAM GENERAL APPEARANCE: The patient is awake, alert, and oriented, in no acute cardiopulmonary distress. NEUROLOGICAL: Cranial nerves II-XII grossly intact. Motor is 5/5 in bilateral upper and lower extremities proximal to distal. No sensory deficits. HEENT: Face is symmetric. Pupils are equal and reactive. Extraocular movements are intact. NECK: Supple. No JVD. No thyromegaly. No submental, submandibular, pre- /postauricular, occipital or supraclavicular lymphadenopathy. CHEST: Normal chest expansion. No Telemetry. LUNGS: Absence of any rales, rhonchi or any wheezing. CARDIOVASCULAR: Regular. S1 and S2 normal. No appreciable rubs, murmurs or gallops. ABDOMEN: Soft, nontender, and nondistended. There is no rebound, voluntary guarding, or rigidity. : Deferred. No Batres. EXTREMITIES: Non-edematous and not cyanotic. No clubbing. Good capillary refill. SKIN: No skin breakdown. Vital Signs (last 8hr) Date Time Temp Pulse Resp B/P (MAP) Pulse Ox O2 Delivery O2 Flow Rate FiO2 02/09/24 07:00 98.2 73 20 101/67 95 Room Air 02/09/24 06:58 84 20 02/09/24 04:09 98.2 86 20 132/67 93 Nasal Cannula 2.0 02/09/24 01:13 87 18 24 LABS: Laboratory: Test 02/09/24 04:20 02/08/24 11:30 Range/Units White Blood Count 10.6 4.8-10.8 K/uL Red Blood Count 3.69 L 4.00-5.50 MIL/uL Hemoglobin 10.4 L 12.0-16.0 g/dL Hematocrit 33.9 L 36-48 % Mean Corpuscular Volume 91.9 79-99 fL Mean Corpuscular Hemoglobin 28.2 27.0-33.0 pg Mean Corpuscular Hemoglobin Concent 30.7 L 32.0-36.0 g/dL Red Cell Distribution Width 16.9 H 11.0-15.5 % Platelet Count 229 130-400 K/uL Mean Platelet Volume 9.4 7.5-10.5 fL Immature Granulocyte % (Auto) 1.6 H 0-1 % Neutrophils (%) (Auto) 75.3 40.0-77.0 % Lymphocytes (%) (Auto) 13.6 L 21.0-51.0 % Monocytes (%) (Auto) 8.3 3.0-13.0 % Eosinophils (%) (Auto) 0.7 0.0-8.0 % Basophils (%) (Auto) 0.5 0.0-5.0 % Neutrophils # (Auto) 7.9 H 1.8-7.7 K/uL Lymphocytes # (Auto) 1.4 1.0-4.8 K/uL Monocytes # (Auto) 0.9 0.1-1.0 K/uL Eosinophils # (Auto) 0.07 0.00-0.70 K/uL Basophils # (Auto) 0.05 0.00-0.20 K/uL Absolute Immature Granulocyte (auto 0.17 0-1 K/uL Nucleated Red Blood Cells 0.0 0.0-0.19 % Sodium Level 139 136-145 mmol/L Potassium Level 3.7 3.5-5.1 mmol/L Chloride Level 102 101-111 mmol/L Carbon Dioxide Level 30 21-32 mmol/L Blood Urea Nitrogen 11 7-18 mg/dL Creatinine 1.0 0.5-1.0 mg/dL Glomerular Filtration Rate Calc 62 >90 mL/min Random Glucose 105 70-105 mg/dL Total Calcium 8.7 8.5-10.1 mg/dL Magnesium Level 1.60 L 1.80-2.40 mg/dL Red Blood Cell Morphology See comments Prothrombin Time 11.4 9.6-11.6 SEC Prothromb Time International Ratio 1.06 0.85-1.15 Activated Partial Thromboplast Time 27.8 26.3-35.5 SEC Hemoglobin A1c 5.6 4.0-6.0 % Estimated Average Glucose (eAG) 114 70-126 mg/dL Total Bilirubin 0.8 0.2-1.0 mg/dL Aspartate Amino Transf (AST/SGOT) 25 10-37 U/L Alanine Aminotransferase (ALT/SGPT) 26 12-78 U/L Alkaline Phosphatase 103 50-136 U/L Troponin I High Sensitivity 9 4-50 ng/L Total Protein 7.0 6.0-8.3 g/dL Albumin 2.7 L 3.5-5.0 g/dL Procalcitonin < 0.05 L 0.05-0.5 ng/mL Thyroid Stimulating Hormone (TSH) 1.70 0.36-3.74 uIU/mL Current Medications Medications (Trade) Dose Ordered Sig/Liz Route PRN Reason Start Time Stop Time Status Last Admin Dose Admin Acetaminophen (TYLenol 500MG TAB) 1,000 mg Q6H PRN PO MILD PAIN (1-3) 02/08/24 18:00 03/09/24 17:59 Acetaminophen/ Codeine Phosphate (TYLenol-coDEINE TAB) 1 tab Q4H PRN PO MODERATE PAIN (4-6) 02/08/24 18:30 03/09/24 18:29 02/09/24 04:55 1 TAB Acetaminophen/ Codeine Phosphate (TYLenol-coDEINE TAB) 2 tab Q4H PRN PO MODERATE PAIN LEVEL 4 TO 10 02/08/24 18:00 02/08/24 18:16 DC Acetaminophen/ Codeine Phosphate (TYLenol-coDEINE TAB) 2 tab Q4H PRN PO SEVERE PAIN (7-10) 02/08/24 18:30 03/09/24 18:29 Artificial Tears (Artificial Tears) 1 DROP Q2H PRN OD DRY EYES 02/08/24 21:00 03/09/24 20:59 02/09/24 00:22 1 DROP Atorvastatin Calcium (LIPItor 10MG) 10 mg HS PO 02/08/24 21:00 03/09/24 20:59 02/08/24 21:14 10 MG Bupropion HCl (WellBUTrin SR 150MG) 150 mg DAILY PO 02/09/24 09:00 03/10/24 08:59 Digoxin (LANOxin 250mcg TAB) 250 mcg DAILY PO 02/09/24 09:00 03/10/24 08:59 Famotidine (Pepcid 20mg Vial) 20 mg Q24H IV 02/08/24 21:00 03/09/24 20:59 02/08/24 21:14 20 MG Furosemide (LASix 40MG TAB) 40 mg BID PO 02/08/24 21:00 03/09/24 20:59 02/08/24 21:14 40 MG Home Med (Home Medication) Escitalopram Oxalate 20 MG HS PO 02/08/24 21:00 03/09/24 20:59 Lisinopril (Prinivil 2.5mg) 2.5 mg HS PO 02/08/24 21:00 03/09/24 20:59 02/08/24 21:14 2.5 MG Loratadine (LORATAdine 10 mg) 10 mg DAILY PO 02/09/24 09:00 03/10/24 08:59 Magnesium Sulfate 50 ml @ 0 mls/hr PROTOCOL PRN IV hypomagnesemia 02/08/24 11:30 03/09/24 11:29 Metoprolol Succinate (TopROL XL) 100 mg DAILY PO 02/09/24 09:00 03/10/24 08:59 Potassium Chloride 100 ml @ 100 mls/hr AD PRN IV POTASSIUM PROTOCOL 02/08/24 11:30 03/09/24 11:29 Potassium Chloride (K-Dur/Klor-Con 20meq) 20 meq AD PRN PO POTASSIUM PROTOCOL 02/08/24 11:30 03/09/24 11:29 02/09/24 07:18 20 MEQ Potassium Chloride (KCl 10% Elixir 20meq/15ml) 20 meq AD PRN PO POTASSIUM PROTOCOL 02/08/24 11:30 03/09/24 11:29 Spironolactone (Aldactone 25mg) 50 mg DAILY PO 02/09/24 09:00 03/10/24 08:59 Tramadol HCl (UltRAM) 50 mg Q6H6 PRN PO PAIN 02/08/24 18:00 02/08/24 18:17 DC DIAGNOSTICS / RADIOLOGY: [ ] ASSESSMENT: AICD malfunction POA History of CHF S/P BiV ICD History of atrial fibrillation on chronic anticoagulation with Xarelto History of ADELIA on CPAP Hypertension Hyperlipidemia Depression Anemia Obesity PLAN: - patient to be admitted to [facility] -in reference to AICD malfunction. We will request consultation with Dr. Lipscomb For further evaluation. Keep potassium greater than four, magnesium greater than two. Pt will be NPO for now. Will obatin pre op labs. -obtain a chest x-ray -obtain home medications which will be reconciled once available -further orders per hospitalization course. Advanced Care Planning Which of the following were discussed: Hospice care: Yes __ No _x_ Therapeutic options: Yes __ No __ Advance directives: Yes __ No __ Other discussions: Pt is full code Discussed with who?: patient (Patient, family or surrogates) Voluntary nature of this service was explained to the patient? Yes _x_ No __ Amount of time spent: 25 minutes ABHI Burrell MD, MD Feb 09, 2024 08:32
--- NOTE | 2024-02-09 09:17 | EKG ---
[facility] Test Date: 2024-02-08 Test Time: 11:16:34 Pat Name: ZAFAR MONTEZ Department: [facility] Patient ID: [id number] Room: 204 1 Gender: F Cipher Expert: MARILEE ALDANA : [id number] Requested By: OUMAR TIERNEY Order Number: [id number] Reading MD: Cynthia Carlton Measurements Intervals Debary Rate: 78 P: 0 VA: 0 QRS: 115 QRSD: 148 T: -41 QT: 430 QTc: 490 Interpretive Statements Wide QRS rhythm with occasional ventricular-paced complexes and premature ventricular complexes or fusion complexes Right axis deviation Nonspecific intraventricular block Compared to ECG 12/15/2023 07:47:47 Uncertain supraventricular rhythm now present Fusion complex(es) now present Right-axis deviation now present Junctional rhythm no longer present Intraventricular conduction delay no longer present ST (T wave) deviation no longer present Electronically Signed On 02-09-2024 17:34:51 DIRECTOR OF EVENTS by Cynthia Carlton Please click the below link to view image of tracing.
[2024-02-09] MEDS: buPROPion HCL 150 MG TABLET.SA PO SCH (09:18)
[2024-02-09] MEDS: SPIRONOLACTONE 25 MG TAB PO SCH (09:18)
[2024-02-09] MEDS: LORATAdine 10 mg 10 MG TABLET PO SCH (09:19)
[2024-02-09] MEDS: metOPROLol sucCINATE 50 MG TAB.SR.24H PO SCH (09:19)
[2024-02-09] MEDS: DIGOxin 250MCG TABLET PO SCH (09:19)
--- NOTE | 2024-02-09 09:53 | HMCIMG ---
CHEST 1VW HISTORY: Status post lead revision COMPARISON: February 08, 2024 FINDINGS: A frontal projection of the chest was obtained. No acute pulmonary infiltrates is seen. The heart is borderline enlarged. All the lines and tubes are again seen in place. Pacemaker is seen entering from the left. IMPRESSION: 1. No acute pulmonary infiltrate is seen.
[2024-02-09] MEDS: MAGNESIUM 2GM PREMIX 50ML 50 ML IV SCH (11:13)
--- NOTE | 2024-02-09 12:50 | DS ---
Discharge Summary Hospital Course Summary: The patient admitted to the hospital 02/08/2024 with the following history of the present illness: This 68-year-old female with past medical history of atrial fibrillation, hypertension, hyperlipidemia, obstructive sleep apnea on CPAP, depression, anemia obesity presented as a transfer from [facility] hospital. Patient initially presented to [facility] for suspected a ICD malfunction. Patient experienced multiple shocks from her AICD around 4-5 days ago. Patient was transferred to [facility] since Dr Dexter unavailable. She was admitted in [facility] around February 03 and monitored by Cardiology. She was evaluated by Cardiology . Per chart review cardiology felt her device shocks were due to inappropriate detection of the ventricular fibrillation due to defibrillator lead sensing atrial fibrillation. She was recommended to hold her Xarelto for the meantime. She was recommended to be transferred to [facility] once Dr. Dexter was available. Chest x-ray from [facility] was concerning for possible right lower lobe infiltrate versus congestion. Patient evaluated by clinical laboratory aides teacher during this admission, underwent revision of RV pacing lead under general anesthesia, tolerated well. Today patient is alert oriented x3, hemodynamically stable, okay for the patient to be discharged home. Food Prep Worker(s): [employer] Procedure(s): AICD lead revision Assessment/Plan: Final diagnosis AICD malfunction POA History of CHF S/P BiV ICD History of atrial fibrillation on chronic anticoagulation with Xarelto History of ADELIA on CPAP Hypertension Hyperlipidemia Depression Anemia Obesity Discharge Instructions: Patient to follow up with the doctor Ruel as an outpatient and to return to the hospital if condition changes. Patient and family agreed and understood the information provided. Patient to hold Xarelto and resume on Tuesday. Home Medications: Active Scripts Tramadol Hcl (Tramadol HCl) 50 Mg Tablet, 50 MG PO Q6HPRN PRN for PAIN, #15 TAB 0 Refills Prov:YUVAL DEXTER MD 12/14/23 Reported Medications Metoprolol Succinate (Metoprolol Succinate) 100 Mg Tab.er.24h, 100 MG PO DAILY, TAB 08/05/23 Bupropion HCl (Bupropion Xl) 150 Mg Tab.er.24h, 150 MG PO DAILY, TAB 08/05/23 Digoxin (Digoxin) 250 Mcg (0.25 Mg) Tablet, 250 MCG PO DAILY, TAB 09/01/18 Lisinopril (Lisinopril) 2.5 Mg Tablet, 2.5 MG PO HS, TAB 09/01/18 Spironolactone (Spironolactone) 50 Mg Tablet, 50 MG PO DAILY, TAB 09/01/18 Furosemide (Furosemide) 40 Mg Tablet, 40 MG PO BID, TAB 09/01/18 Atorvastatin Calcium (Atorvastatin Calcium) 10 Mg Tablet, 10 MG PO HS, TAB 09/01/18 Rivaroxaban (Xarelto) 20 Mg Tablet, 20 MG PO DAILY, TAB 09/01/18 Escitalopram Oxalate (Escitalopram Oxalate) 10 Mg Tablet, 20 MG PO HS, TAB 09/01/18 Loratadine (Loratadine) 10 Mg Tablet, 10 MG PO DAILY, TAB 09/01/18 Time spent arranging discharge: 31-60 minutes ABHI TRINIDAD MD Feb 09, 2024 12:50
[2024-02-09] MEDS ORDERED: ALPR0.5T PO (12:55)
[2024-02-09] MEDS: LORazepam 2 MG/ML 1 ML VIAL IVP ONE (13:24)
--- NOTE | 2024-02-09 16:00 | NUR ---
DISCHARGE INSTRUCTIONS WERE GIVEN TO THIS PATIENT AND FAMILY MEMBERS AT BEDSIDE. APPOINTMENTS WERE GIVEN FOR PCP AND DR. DEXTER. PIV TO LEFT HAND WAS REMOVED AND DRY DRESSING APPLIED WHEN BLEEDING STOPPED. ALL BELONGINGS WERE TAKEN WITH THE PATIENT. TELEPAK WAS REMOVED AND RETURNED TO TELEMETRY ROOM. EDUCATION PACKET EXPLAINED AND PROVIDED. PATIENT WAS TAKEN TO PRIVATE VEHICLE VIA WHEEL CHAIR.
== END 2024-02-09 15:50 | disposition home or self-care (01) | DRG 260 ==
LOC: 2AH 10:37
PROVIDERS: ADMIT Internal Medicine; ATTEND Internal Medicine
PROC: 02WA3MZ Revision of Cardiac Lead in Heart, Percutaneous Approach (ICD-10-PCS; principal; 2024-02-08)
DX: T82.198A Other mechanical complication of other cardiac electronic device, initial encounter (principal); I49.01 Ventricular fibrillation; I42.8 Other cardiomyopathies; Z68.44 Body mass index [BMI] 60.0-69.9, adult; E78.5 Hyperlipidemia, unspecified; F32.A Depression, unspecified; I11.0 Hypertensive heart disease with heart failure; I48.91 Unspecified atrial fibrillation; I49.5 Sick sinus syndrome; E66.9 Obesity, unspecified; Y71.8 Miscellaneous cardiovascular devices associated with adverse incidents, not elsewhere classified; D64.9 Anemia, unspecified; I50.9 Heart failure, unspecified; E66.01 Morbid (severe) obesity due to excess calories; Y71.2 Prosthetic and other implants, materials and accessory cardiovascular devices associated with adverse incidents; Y92.89 Other specified places as the place of occurrence of the external cause; Z79.01 Long term (current) use of anticoagulants; Z95.810 Presence of automatic (implantable) cardiac defibrillator
CPT/HCPCS: 33215; 33217; 36415; 71045; 80048; 80053; 83036; 83735; 84145; 84443; 84484; 85025; 85610; 85730; 93005; 94660; C1769; C1894; G0378; J0330; J1100; J2003; J2250; J2405; J2704; J2710; J3010; J3370; J3475; J3490; Q9967; C1895; J0665